=== PATIENT | female | born 1940 | race Caucasian/White ===

== ENCOUNTER → 2016-07-15 | Outpatient (CLI) | payer OTHER ==
[~2016-07-15] MED LIST: ALEN70TA5 PO; ASPI-515 PO; CLOP75TA PO; MULT-108 PO; SIMV40TA3 PO; VENL100T PO; VENL50TA2 PO
== END | disposition home or self-care (01) ==
LOC: RAD 08:40
PROVIDERS: ATTEND Internal Medicine Cardiovascular Disease
DX: R07.9 Chest pain, unspecified (principal); I63.9 Cerebral infarction, unspecified; R06.02 Shortness of breath
CPT/HCPCS: 78452; 93017; A9502

== ENCOUNTER → 2016-07-20 | Outpatient (CLI) | payer OTHER | END | disposition home or self-care (01) | LOC: CVU 11:39 | PROVIDERS: ATTEND Internal Medicine Cardiovascular Disease | DX: I63.9 Cerebral infarction, unspecified (principal); R07.89 Other chest pain; R06.02 Shortness of breath | CPT/HCPCS: 93306; 93922 ==

== ENCOUNTER → 2017-05-20 | Outpatient (CLI) | payer MEDICARE | LOC: CFH 12:30 | DX: Z12.31 Encounter for screening mammogram for malignant neoplasm of breast (principal); M81.0 Age-related osteoporosis without current pathological fracture | CPT/HCPCS: 77080; 77067 ==

== ENCOUNTER 2017-07-12 21:06 | Inpatient (IN) | payer MEDICARE ==
[~2017-07-12] VITALS: Ht 157.5 cm; Wt 72.3 kg
[2017-07-12] MEDS ORDERED: VENL100T PO (22:09)
[2017-07-12] MEDS ORDERED: VENL75TA PO (22:09)
[2017-07-12] MEDS ORDERED: VENL225T PO (22:09)
[2017-07-12 22:33] LABS: BASOPHILS # (AUTO) 0.04 x10^3/uL (0-0.1); BASOPHILS % (AUTO) 1 % (0-1); EOSINOPHILS # (AUTO) 0.09 x10^3/uL (0-0.4); EOSINOPHILS % (AUTO) 1 % (1-7); LYMPHOCYTES # (AUTO) 1.64 x10^3/uL (1-3.4); LYMPHOCYTES % (AUTO) 19 % (22-44); MD NO; MEAN CORPUSCULAR HEMOGLOBIN 33.6 pg (27.0-34.8); MEAN CORPUSCULAR HGB CONC 33.6 g/dL (32.4-35.8); MEAN CORPUSCULAR VOLUME 100.1 fL (80-100); MEAN PLATELET VOLUME 8.2 fL (7.4-10.4); MONOCYTES # (AUTO) 0.87 x10^3/uL (0.2-0.8); MONOCYTES % (AUTO) 10 % (2-9); NEUTROPHILS # (AUTO) 5.85 x10^3/uL (1.8-6.8); NEUTROPHILS % (AUTO) 69 % (42-75); PLATELET COUNT 139 x10^3/uL (130-400); RED BLOOD COUNT 4.29 x10^6/uL (3.82-5.3); RED CELL DISTRIBUTION WIDTH 14.3 % (9.6-15.2)
[2017-07-12 22:40] LABS: INTERNATIONAL NORMALIZED RATIO 1.07 (0.93-1.1)
[2017-07-12 22:43] LABS: ALANINE AMINOTRANSFERASE 13 U/L (12-78); ALBUMIN 2.9 g/dL (3.4-5.0); ANION GAP 6 mmol/L (5-15); CALCIUM 8.2 mg/dL (8.5-10.1); CHLORIDE 106 mmol/L (98-107); CREATININE 0.83 mg/dL (0.55-1.02)
[2017-07-12 22:45] LABS: ALKALINE PHOSPHATASE 62 U/L (45-117); BILIRUBIN,TOTAL 0.8 mg/dL (0.2-1.0); TOTAL PROTEIN 6.5 g/dL (6.4-8.2)
[2017-07-13 01:36] VITALS: BP 153/97
[2017-07-13] MEDS ORDERED: hydrALAzine 20 MG/ML, 1ML IVPush PRN (02:00)
[2017-07-13] MEDS ORDERED: ONDANSETRON 2MG/ML, 2ML IVPush PRN (02:00)
[2017-07-13] MEDS: ENOXAPARIN 40 MG/0.4 ML SQ SCH (02:47)
[2017-07-13] MEDS: SODIUM CHLORIDE 0.9% 1,000 ML IV SCH ×2 (02:47→18:02)
[2017-07-13 07:06] VITALS: BP 146/92
[2017-07-13] MEDS: POLYETHYLENE GLYCOL 17 GM PACKET PO SCH (09:00)
[2017-07-13 13:18] VITALS: BP 113/69
[2017-07-13] MEDS: SIMVASTATIN 40 MG TABLET PO SCH (19:51)
[2017-07-13] MEDS: CLOPIDOGREL 75 MG TABLET PO SCH (19:51)
[2017-07-13 20:13] VITALS: BP 127/84
[2017-07-14 02:59] VITALS: BP 142/84
[2017-07-14] MEDS: ENOXAPARIN 40 MG/0.4 ML SQ SCH (04:36)
[2017-07-14 06:46] VITALS: BP 145/90
[2017-07-14] MEDS: POLYETHYLENE GLYCOL 17 GM PACKET PO SCH (08:39)
[2017-07-14] MEDS: ACETAMINOPHEN 325 MG TABLET PO PRN ×2 (08:39→21:25)
[2017-07-14] MEDS: SODIUM CHLORIDE 0.9% 1,000 ML IV SCH (09:06)
[2017-07-14] MEDS ORDERED: ONDANSETRON 2MG/ML, 2ML IVPush PRN (12:30)
[2017-07-14] MEDS ORDERED: METOCLOPRAMIDE 5 MG/ML, 2ML IVPush PRN (12:30)
[2017-07-14] MEDS ORDERED: METOCLOPRAMIDE 5 MG/ML, 2ML ONE (12:31)
[2017-07-14 13:42] VITALS: BP 148/81
[2017-07-14 19:53] VITALS: BP 133/83
[2017-07-14] MEDS: SIMVASTATIN 40 MG TABLET PO SCH (20:40)
[2017-07-14] MEDS: CLOPIDOGREL 75 MG TABLET PO SCH (20:40)
[2017-07-15] MEDS: SODIUM CHLORIDE 0.9% 1,000 ML IV SCH ×2 (00:03→11:40)
[2017-07-15 02:47] VITALS: BP 119/76
[2017-07-15] MEDS: ENOXAPARIN 40 MG/0.4 ML SQ SCH (04:16)
[2017-07-15] MEDS: POLYETHYLENE GLYCOL 17 GM PACKET PO SCH (08:34)
[2017-07-15 08:40] VITALS: BP 107/57
[2017-07-15] MEDS ORDERED: ACET325T14 PO (13:21)
[2017-07-15 13:27] VITALS: BP 137/88
[2017-07-15 15:00] VITALS: BP 151/82
[2017-07-18] MEDS ORDERED: ALENDRONATE 70 MG TABLET PO SCH (06:30)
== END 2017-07-15 15:45 | disposition home or self-care (01) | DRG 604 ==
LOC: ED 23:59 → EDIP 07-13 01:00 → 4NOR 07-13 01:30 → DCLOUNGE 07-15 15:31
PROVIDERS: ADMIT Hospitalist; ATTEND Family Medicine
DX: S70.01XA Contusion of right hip, initial encounter (principal); E43 Unspecified severe protein-calorie malnutrition; W01.0XXA Fall on same level from slipping, tripping and stumbling without subsequent striking against object, initial encounter; E78.00 Pure hypercholesterolemia, unspecified; E78.5 Hyperlipidemia, unspecified; Y93.89 Activity, other specified; Y92.89 Other specified places as the place of occurrence of the external cause; Y99.8 Other external cause status; Z68.29 Body mass index [BMI] 29.0-29.9, adult; S20.212A Contusion of left front wall of thorax, initial encounter; Z86.73 Personal history of transient ischemic attack (TIA), and cerebral infarction without residual deficits; Z87.891 Personal history of nicotine dependence; R51 Headache
CPT/HCPCS: 36415; 70450; 71250; 72125; 72131; 74176; 80053; 85025; 85610; 85730; 99285; J1650; J2405; J2765; J7030

== ENCOUNTER 2017-08-09 12:10 | Inpatient (IN) | payer MEDICARE ==
[~2017-08-09] VITALS: Ht 157.5 cm; Wt 74.2 kg
[~2017-08-09 12:10] MED LIST changes: +ACET325T14 PO; +VENL225T PO; +VENL75TA PO
[2017-08-09] MEDS ORDERED: DEXAMETHASONE 4 MG/ML, 5ML IVPush ONE (15:00)
[2017-08-09] MEDS ORDERED: SODIUM CHLORIDE FLUSH 10ML SYR IVF ONE (15:00)
[2017-08-09 15:24] LABS: BASOPHILS # (AUTO) 0.02 x10^3/uL (0-0.1); BASOPHILS % (AUTO) 0 % (0-1); EOSINOPHILS # (AUTO) 0.08 x10^3/uL (0-0.4); EOSINOPHILS % (AUTO) 1 % (1-7); LYMPHOCYTES # (AUTO) 1.58 x10^3/uL (1-3.4); LYMPHOCYTES % (AUTO) 24 % (22-44); MD NO; MEAN CORPUSCULAR HEMOGLOBIN 33.5 pg (27.0-34.8); MEAN CORPUSCULAR HGB CONC 33.8 g/dL (32.4-35.8); MEAN PLATELET VOLUME 7.9 fL (7.4-10.4); MONOCYTES # (AUTO) 0.49 x10^3/uL (0.2-0.8); MONOCYTES % (AUTO) 7 % (2-9); NEUTROPHILS # (AUTO) 4.43 x10^3/uL (1.8-6.8); NEUTROPHILS % (AUTO) 67 % (42-75); PLATELET COUNT 203 x10^3/uL (130-400); RED BLOOD COUNT 4.43 x10^6/uL (3.82-5.3); RED CELL DISTRIBUTION WIDTH 14.5 % (9.6-15.2)
[2017-08-09 15:36] LABS: ALBUMIN 3.3 g/dL (3.4-5.0); ANION GAP 8 mmol/L (5-15); CALCIUM 8.9 mg/dL (8.5-10.1); CHLORIDE 106 mmol/L (98-107)
[2017-08-09] MEDS ORDERED: DEXAMETHASONE 4 MG/ML, 5ML ONE (15:37)
[2017-08-09 15:41] LABS: CREATININE 0.69 mg/dL (0.55-1.02)
[2017-08-09 15:42] LABS: ALANINE AMINOTRANSFERASE 16 U/L (12-78); ALKALINE PHOSPHATASE 154 U/L (45-117); BILIRUBIN,TOTAL 0.6 mg/dL (0.2-1.0); TOTAL PROTEIN 7.1 g/dL (6.4-8.2)
[2017-08-09 15:58] LABS: MICROSCOPIC NOT IND
[2017-08-09 16:05] LABS: CULTURE INDICATED? NO
[2017-08-09] MEDS ORDERED: ALBU8.5H8 INH (16:45)
[2017-08-09] MEDS ORDERED: ALPR0.254 PO (16:45)
[2017-08-09] MEDS ORDERED: flonase NAS (16:45)
[2017-08-09] MEDS ORDERED: [UNRECOGNIZED DRUG - OTHER] NAS (16:46)
[2017-08-09] MEDS ORDERED: ACETAMINOPHEN 325 MG TABLET PO PRN (18:00)
[2017-08-09] MEDS ORDERED: ONDANSETRON 2MG/ML, 2ML IVPush PRN (18:00)
[2017-08-09] MEDS ORDERED: LIDOCAINE GEL 2%, 5ML TP ONE (18:00)
[2017-08-09 19:33] VITALS: BP 155/84
[2017-08-09 20:00] VITALS: BP 155/84
[2017-08-09] MEDS: ENOXAPARIN 40 MG/0.4 ML SQ SCH (21:38)
[2017-08-09] MEDS: D5%-0.45% NACL 1,000 ML IV SCH (21:38)
[2017-08-09] MEDS: CLOPIDOGREL 75 MG TABLET PO SCH (21:40)
[2017-08-09] MEDS: SIMVASTATIN 40 MG TABLET PO SCH (21:41)
[2017-08-09] MEDS: CYCLOBENZAPRINE 10 MG TABLET PO SCH (21:44)
[2017-08-10 02:51] VITALS: BP 117/70
[2017-08-10 05:24] LABS: ALANINE AMINOTRANSFERASE 14 U/L (12-78); ALBUMIN 2.9 g/dL (3.4-5.0); ANION GAP 8 mmol/L (5-15); CHLORIDE 107 mmol/L (98-107)
[2017-08-10 05:27] LABS: ALKALINE PHOSPHATASE 141 U/L (45-117); BILIRUBIN,TOTAL 0.5 mg/dL (0.2-1.0); CREATININE 0.76 mg/dL (0.55-1.02); TOTAL PROTEIN 6.4 g/dL (6.4-8.2)
[2017-08-10 05:29] LABS: BASOPHILS # (AUTO) 0.01 x10^3/uL (0-0.1); BASOPHILS % (AUTO) 0 % (0-1); EOSINOPHILS % (AUTO) 0 % (1-7); LYMPHOCYTES # (AUTO) 0.96 x10^3/uL (1-3.4); LYMPHOCYTES % (AUTO) 19 % (22-44); MD NO; MEAN CORPUSCULAR HEMOGLOBIN 32.3 pg (27.0-34.8); MEAN CORPUSCULAR HGB CONC 32.9 g/dL (32.4-35.8); MEAN CORPUSCULAR VOLUME 98.2 fL (80-100); MEAN PLATELET VOLUME 8.2 fL (7.4-10.4); MONOCYTES # (AUTO) 0.24 x10^3/uL (0.2-0.8); MONOCYTES % (AUTO) 5 % (2-9); NEUTROPHILS # (AUTO) 3.97 x10^3/uL (1.8-6.8); NEUTROPHILS % (AUTO) 77 % (42-75); PLATELET COUNT 207 x10^3/uL (130-400); RED CELL DISTRIBUTION WIDTH 14.4 % (9.6-15.2)
[2017-08-10 06:55] VITALS: BP 118/66
[2017-08-10] MEDS: VENLAFAXINE XR 37.5MG CAP.ER.24H PO SCH (09:24)
[2017-08-10] MEDS: CYCLOBENZAPRINE 10 MG TABLET PO SCH ×3 (09:27→20:45)
[2017-08-10] MEDS: LIDOCAINE 4% CREAM 5GM TUBE TP SCH (13:55)
[2017-08-10] MEDS: D5%-0.45% NACL 1,000 ML IV SCH (14:18)
[2017-08-10 14:28] VITALS: BP 110/73
[2017-08-10 19:49] VITALS: BP 102/66
[2017-08-10] MEDS: CLOPIDOGREL 75 MG TABLET PO SCH (20:45)
[2017-08-10] MEDS: ENOXAPARIN 40 MG/0.4 ML SQ SCH (20:45)
[2017-08-10] MEDS: SIMVASTATIN 40 MG TABLET PO SCH (20:45)
[2017-08-11 02:00] VITALS: BP 101/64
[2017-08-11 08:20] VITALS: BP 120/74
[2017-08-11] MEDS: VENLAFAXINE XR 37.5MG CAP.ER.24H PO SCH (08:35)
[2017-08-11] MEDS: CYCLOBENZAPRINE 10 MG TABLET PO SCH ×3 (08:35→19:55)
[2017-08-11] MEDS: D5%-0.45% NACL 1,000 ML IV SCH (11:37)
[2017-08-11 13:42] VITALS: BP 93/63
[2017-08-11] MEDS: SIMVASTATIN 40 MG TABLET PO SCH (19:54)
[2017-08-11] MEDS: CLOPIDOGREL 75 MG TABLET PO SCH (19:54)
[2017-08-11] MEDS: ENOXAPARIN 40 MG/0.4 ML SQ SCH (19:55)
[2017-08-11 19:56] VITALS: BP 98/60
[2017-08-12 01:50] VITALS: BP 102/68
[2017-08-12 08:50] VITALS: BP 125/77
[2017-08-12] MEDS: LIDOCAINE 4% CREAM 5GM TUBE TP SCH (09:00)
[2017-08-12] MEDS: D5%-0.45% NACL 1,000 ML IV SCH (09:06)
[2017-08-12] MEDS: VENLAFAXINE XR 37.5MG CAP.ER.24H PO SCH (09:06)
[2017-08-12] MEDS: CYCLOBENZAPRINE 10 MG TABLET PO SCH ×2 (09:06→15:25)
[2017-08-12] MEDS ORDERED: LIDODERM 5% PATCH TD SCH (16:00)
[2017-08-12] MEDS ORDERED: Lidoderm 5% Patch TD (16:20)
[2017-08-12 16:46] VITALS: BP 141/87
== END 2017-08-12 17:54 | disposition home or self-care (01) | DRG 552 ==
LOC: ED 17:31 → EDIP 17:32 → ED 18:23 → 3NE 19:10 → OBSVTOIN 08-10 11:12
PROVIDERS: ADMIT Internal Medicine; ATTEND Internal Medicine
PROC: 0T9B70Z Drainage of Bladder with Drainage Device, Via Natural or Artificial Opening (ICD-10-PCS; principal; 2017-08-09)
DX: S32.139A Unspecified Zone III fracture of sacrum, initial encounter for closed fracture (principal); J44.9 Chronic obstructive pulmonary disease, unspecified; E78.5 Hyperlipidemia, unspecified; M25.552 Pain in left hip; Z86.73 Personal history of transient ischemic attack (TIA), and cerebral infarction without residual deficits; G89.29 Other chronic pain; W18.39XA Other fall on same level, initial encounter; F41.9 Anxiety disorder, unspecified; K52.9 Noninfective gastroenteritis and colitis, unspecified; F32.9 Major depressive disorder, single episode, unspecified; Z80.1 Family history of malignant neoplasm of trachea, bronchus and lung; Z87.891 Personal history of nicotine dependence; Z79.899 Other long term (current) drug therapy; Y93.89 Activity, other specified; Y92.89 Other specified places as the place of occurrence of the external cause
CPT/HCPCS: 36415; 72148; 72192; 80053; 81003; 85025; 96374; G0378; J1100; J1650

== ENCOUNTER 2017-09-28 14:27 | Inpatient (IN) | payer MEDICARE ==
[~2017-09-28] VITALS: Ht 157.5 cm; Wt 70.4 kg
[~2017-09-28 14:27] MED LIST changes: +ALBU8.5H8 INH; +ALPR0.254 PO; +Lidoderm 5% Patch TD; +[UNRECOGNIZED DRUG - OTHER] NAS; +flonase NAS
[2017-09-28] MEDS ORDERED: OXYcodone/APAP 5/325MG TABLET PO ONE (15:00)
[2017-09-28] MEDS ORDERED: OXYcodone/APAP 5/325MG TABLET ONE (15:18)
[2017-09-28] MEDS ORDERED: MORPHINE SULFATE 4 MG/ML, 1ML IVPush ONE (16:30)
[2017-09-28] MEDS ORDERED: SODIUM CHLORIDE FLUSH 10ML SYR IVF ONE (16:30)
[2017-09-28] MEDS ORDERED: MORPHINE SULFATE 4 MG/ML, 1ML ONE (16:36)
[2017-09-28] MEDS ORDERED: SODIUM CHLORIDE 0.9% 1,000 ML IV SCH (16:41)
[2017-09-28 16:46] LABS: BASOPHILS # (AUTO) 0.02 x10^3/uL (0-0.1); BASOPHILS % (AUTO) 0 % (0-1); EOSINOPHILS # (AUTO) 0.15 x10^3/uL (0-0.4); EOSINOPHILS % (AUTO) 2 % (1-7); LYMPHOCYTES % (AUTO) 24 % (22-44); MD NO; MEAN CORPUSCULAR HGB CONC 33.2 g/dL (32.4-35.8); MEAN CORPUSCULAR VOLUME 99.5 fL (80-100); MONOCYTES # (AUTO) 0.86 x10^3/uL (0.2-0.8); MONOCYTES % (AUTO) 12 % (2-9); NEUTROPHILS # (AUTO) 4.43 x10^3/uL (1.8-6.8); NEUTROPHILS % (AUTO) 62 % (42-75); PLATELET COUNT 196 x10^3/uL (130-400); RED BLOOD COUNT 4.17 x10^6/uL (3.82-5.3); RED CELL DISTRIBUTION WIDTH 15.3 % (9.6-15.2)
[2017-09-28 16:56] LABS: ALBUMIN 3.2 g/dL (3.4-5.0); ANION GAP 6 mmol/L (5-15); CALCIUM 8.2 mg/dL (8.5-10.1); CHLORIDE 106 mmol/L (98-107); CREATININE 0.83 mg/dL (0.55-1.02)
[2017-09-28] MEDS ORDERED: MORPHINE SULFATE 4 MG/ML, 1ML IVPush PRN (17:00)
[2017-09-28] MEDS ORDERED: ACETAMINOPHEN 325 MG TABLET PO PRN (17:00)
[2017-09-28] MEDS ORDERED: POLYETHYLENE GLYCOL 17 GM PACKET PO PRN (17:00)
[2017-09-28] MEDS ORDERED: hydrALAzine 20 MG/ML, 1ML IVPush PRN (17:00)
[2017-09-28] MEDS ORDERED: LABETALOL 5MG/ML, 20ML IVPush PRN (17:00)
[2017-09-28] MEDS ORDERED: ONDANSETRON 2MG/ML, 2ML ONE (17:40)
[2017-09-28] MEDS: ONDANSETRON 2MG/ML, 2ML IVPush PRN (17:46)
[2017-09-28 19:18] VITALS: BP 136/83
[2017-09-28 20:13] LABS: MICROSCOPIC AUTO
[2017-09-28 20:16] LABS: CULTURE INDICATED? YES
[2017-09-28] MEDS: HEPARIN 5,000 UNITS/ML, 1ML SQ SCH (20:21)
[2017-09-29 01:30] VITALS: BP 129/83
[2017-09-29] MEDS: HEPARIN 5,000 UNITS/ML, 1ML SQ SCH ×3 (05:12→21:04)
[2017-09-29 06:58] VITALS: BP 126/81
[2017-09-29] MEDS ORDERED: SENNA/DOCUSATE TABLET PO SCH (09:00)
[2017-09-29] MEDS: HYDROcodone/APAP 5/325 TABLET PO PRN ×2 (09:16→17:16)
[2017-09-29 10:31] LABS: BASOPHILS # (AUTO) 0.02 x10^3/uL (0-0.1); BASOPHILS % (AUTO) 0 % (0-1); EOSINOPHILS # (AUTO) 0.17 x10^3/uL (0-0.4); EOSINOPHILS % (AUTO) 2 % (1-7); LYMPHOCYTES # (AUTO) 1.87 x10^3/uL (1-3.4); LYMPHOCYTES % (AUTO) 23 % (22-44); MD NO; MEAN CORPUSCULAR HEMOGLOBIN 33.7 pg (27.0-34.8); MEAN CORPUSCULAR HGB CONC 33.8 g/dL (32.4-35.8); MEAN CORPUSCULAR VOLUME 99.7 fL (80-100); MEAN PLATELET VOLUME 7.9 fL (7.4-10.4); MONOCYTES # (AUTO) 0.75 x10^3/uL (0.2-0.8); MONOCYTES % (AUTO) 9 % (2-9); NEUTROPHILS # (AUTO) 5.27 x10^3/uL (1.8-6.8); NEUTROPHILS % (AUTO) 65 % (42-75); PLATELET COUNT 242 x10^3/uL (130-400); RED BLOOD COUNT 4.41 x10^6/uL (3.82-5.3); RED CELL DISTRIBUTION WIDTH 15.4 % (9.6-15.2)
[2017-09-29 10:34] LABS: ANION GAP 3 mmol/L (5-15); CALCIUM 8.6 mg/dL (8.5-10.1); CHLORIDE 108 mmol/L (98-107); CREATININE 0.78 mg/dL (0.55-1.02)
[2017-09-29] MEDS: ONDANSETRON 2MG/ML, 2ML IVPush PRN (13:02)
[2017-09-29 13:09] VITALS: BP 115/75
[2017-09-29] MEDS: SODIUM CHLORIDE 0.9% 1,000 ML IV SCH (14:50)
[2017-09-29] MEDS: METOCLOPRAMIDE 5 MG/ML, 2ML IVPush PRN (14:50)
[2017-09-29] MEDS ORDERED: POLYETHYLENE GLYCOL 17 GM PACKET PO PRN (15:00)
[2017-09-29 19:08] VITALS: BP 121/81
[2017-09-29] MEDS ORDERED: DOCUSATE 100 MG CAPSULE PO PRN (21:00)
[2017-09-29] MEDS: LACTULOSE 10 GM/15 ML UDC PO SCH (21:04)
[2017-09-30 01:09] VITALS: BP 127/83
[2017-09-30] MEDS: SODIUM CHLORIDE 0.9% 1,000 ML IV SCH ×2 (04:31→17:04)
[2017-09-30] MEDS: HEPARIN 5,000 UNITS/ML, 1ML SQ SCH ×2 (04:31→12:46)
[2017-09-30 06:59] VITALS: BP 108/69
[2017-09-30] MEDS: METOCLOPRAMIDE 5 MG/ML, 2ML IVPush PRN (08:14)
[2017-09-30] MEDS ORDERED: BISACODYL 10 MG SUPP PR ONE (09:00)
[2017-09-30] MEDS ORDERED: POLYETHYLENE GLYCOL 17 GM PACKET PO SCH (09:00)
[2017-09-30] MEDS ORDERED: SENNA/DOCUSATE TABLET PO SCH (09:00)
[2017-09-30] MEDS: LACTULOSE 10 GM/15 ML UDC PO SCH (09:00)
[2017-09-30] MEDS: ONDANSETRON 2MG/ML, 2ML IVPush PRN (12:46)
[2017-09-30 14:12] VITALS: BP 110/70
[2017-09-30] MEDS ORDERED: ONDA4TAB13 SL (15:15)
[2017-09-30] MEDS ORDERED: POLY17PO5 PO (15:15)
== END 2017-09-30 17:44 | disposition home health service (06) | DRG 543 ==
LOC: ED 15:59 → EDIP 16:33 → 3NE 17:19
PROVIDERS: ADMIT Internal Medicine; ATTEND Internal Medicine
DX: M48.54XA Collapsed vertebra, not elsewhere classified, thoracic region, initial encounter for fracture (principal); E44.1 Mild protein-calorie malnutrition; W06.XXXA Fall from bed, initial encounter; E78.00 Pure hypercholesterolemia, unspecified; Z86.73 Personal history of transient ischemic attack (TIA), and cerebral infarction without residual deficits; Y93.89 Activity, other specified; Y92.89 Other specified places as the place of occurrence of the external cause; Y99.2 Volunteer activity
CPT/HCPCS: 36415; 71250; 72128; 72131; 74018; 74176; 80048; 81001; 82040; 83735; 84100; 85025; 87086; 96374; 96375; J1644; J2405; J2765; J7030

== ENCOUNTER → 2018-06-24 | Outpatient (CLI) | payer MEDICARE ==
[~2018-06-24] MED LIST changes: -ALEN70TA5 PO; +ALEN70TA6 PO; +OMNIPAQUE 350 MG/ML, 100ML BOTTLE ONE; +ONDA4TAB13 SL; +POLY17PO5 PO
== END | disposition home or self-care (01) ==
LOC: CFH 08:58
PROVIDERS: ATTEND Internal Medicine
DX: J43.9 Emphysema, unspecified (principal); K44.9 Diaphragmatic hernia without obstruction or gangrene; Z87.891 Personal history of nicotine dependence
CPT/HCPCS: 71275; 82565; Q9967

== ENCOUNTER → 2019-06-02 | Outpatient (CLI) | payer MEDICARE ==
[~2019-06-02] MED LIST changes: -OMNIPAQUE 350 MG/ML, 100ML BOTTLE ONE; +SIMV40TA20 PO; -SIMV40TA3 PO; -VENL50TA2 PO; +VENL50TA42 PO
== END | disposition home or self-care (01) ==
LOC: CFH 12:40
PROVIDERS: ATTEND Internal Medicine
DX: J43.2 Centrilobular emphysema (principal); M84.48XA Pathological fracture, other site, initial encounter for fracture; M85.88 Other specified disorders of bone density and structure, other site; K44.9 Diaphragmatic hernia without obstruction or gangrene; M40.294 Other kyphosis, thoracic region; I70.0 Atherosclerosis of aorta; I51.7 Cardiomegaly; I25.10 Atherosclerotic heart disease of native coronary artery without angina pectoris
CPT/HCPCS: 71250

== ENCOUNTER → 2020-09-10 | Outpatient (CLI) | payer MEDICARE ==
[~2020-09-10] MED LIST changes: -ALEN70TA6 PO; +ALEN70TA77 PO; -ASPI-515 PO; +ASPI-963 PO
== END | disposition home or self-care (01) ==
LOC: CFH 14:41
PROVIDERS: ATTEND Internal Medicine Cardiovascular Disease
DX: I08.8 Other rheumatic multiple valve diseases (principal); E78.5 Hyperlipidemia, unspecified; I42.9 Cardiomyopathy, unspecified
CPT/HCPCS: 93306